=== PATIENT | male | born 1985 | race African-American/Black ===

== ENCOUNTER 2019-10-23 11:26 | Emergency (ER) | payer OTHER ==
[~2019-10-23] VITALS: Ht 188 cm; Wt 117.9 kg
--- NOTE | ~2019-10-23 | EMS ---
[address] [address] EMS Patient Care Report Name: PÉREZ SONI Room #: PRE M.R.#: [id number] Admission: Attend Phys: Discharge: Date of : 83 Report #: [id number] THIS REPORT FOR: //name// Report Transmitted: 10/23/2019 13:16 EMS Care Summary [place], [place]/[facility] Incident [id number] @ 10/23/2019 10:49 Incident Location [address] [place] [address] Patient ADAN KELLEY Female, 89 Years 1928-03-14 Patient Address [address] [place] [address] Patient History Stroke/CVA,Cardiac - Stent,Deep Vein Thrombosis,Mastectomy,Tonsillectomy, Patient Allergies No known allergies, Patient Medications Pantoprazole, Atorvastatin, Gabapentin, Lisinopril, Glimepiride, Duloxetine, Amlodipine, Atenolol, Xarelto, Januvia, Chief Complaint HYPERGLYCEMIA Disposition Transported No Lights/[place] Dispatch Reason Diabetic Problem Transported To [facility] Narrative PT FOUND BEING BROUGHT OUTSIDE BY [facility] P28. PT WEARING SURGICAL MASK. P28 CREW ALL WEARING MASKS. PT STATES THAT HER BLOOD SUGAR IS HIGH TODAY. PT STATES THAT SHE TAKES ALL OF HER MEDICATIONS RX, BUT HAS NOT HAD THEM YET THIS AM. PT [address] [address] EMS Patient Care Report Name: PÉREZ SONI Room #: PRE M.R.#: [id number] Admission: Attend Phys: Discharge: Date of : 83 Report #: [id number] DENIES OTHER COMPLAINTS. TRASNPORTED WITHOUT INCIDENT. Initial Vitals @11:12P: 76,BP: 177/84,SpO2: 99, @11:06P: 90,R: 16,Pain: 0/10,GCS: 15,Glucose: 383, Assessments @11:02MENTAL:No Abnormalities,SKIN:No Abnormalities,HEENT:Head/Face: No Abnormalities,Eyes: No Abnormalities,Neck/Airway: No Abnormalities,LUNG SOUNDS:ABDOMEN:PELVIS//GI:EXTREMITIES:PULSE:NEURO:No Abnormalities, Impression Diabetic Hyperglycemia Procedures @11:02ALS AssessmentResponse: UnchangedSucceeded Timeline 10:46,Call Received 10:46,Dispatch Notified 10:49,Dispatched 10:50,En Route 11:01,On Scene 11:02,At Patient 11:02,ALS Assessment,Response: UnchangedSucceeded, 11:06,BP: / M,PULSE: 90,RR: 16 R,SPO2: Ox,ETCO2: ,B,PAIN: 0,GCS: 15, 11:12,BP: 177/84 M,PULSE: 76,RR: R,SPO2: 99 Ox,ETCO2: ,BG: ,PAIN: ,GCS: , 11:12,Depart Scene 11:21,At Destination 11:40,Call Closed Disclaimer v1.1 Copyright 2020 [employer] This EMS Care Summary contains data elements from the applicable legal record (which may be displayed differently). It is designed to provide pertinent information for the following purposes: continuity of care, clinical quality, and state data reporting. The complete legal record is available to ED staff and administrators of the receiving hospital in [facility]'s Patient Tracker. All data is provided "as is."
[2019-10-23 12:12] LABS: ABSOLUTE NEUTROPHILS 7.2 thou/uL (1.4-8.2); BASOPHILS 1.1 % (0.0-2.0); EOSINOPHILS 0.5 % (0.0-3.0); HEMATOCRIT 48.9 % (42.0-52.0); HEMOGLOBIN 16.6 gm/dL (14.0-18.0); LYMPHOCYTES 19.7 % (24.0-44.0); MCH 28.7 pg (26.0-34.0); MCHC 33.9 g/dL (28.0-37.0); MCV 84.6 fL (80.0-100.0); MONOCYTES 10.4 % (1.0-8.0); POLYS 68.3 % (36.0-66.0); RBC 5.79 mil/uL (4.50-6.00); RDW 13.5 % (10.5-14.5); WBC 10.5 thou/uL (4.0-11.0)
[2019-10-23 13:10] LABS: LARGE PLATELETS OCCASIONAL; PLATELET COUNT 196 thou/uL (150-400)
[2019-10-23 13:34] LABS: ANION GAP 10 mmol/L (7-16); BUN 7 mg/dL (7-18); CALCIUM 7.7 mg/dL (8.5-10.1); CHLORIDE 105 mmol/L (98-107); CO2 26 mmol/L (21-32); CREATININE 1.1 mg/dL (0.7-1.3); GLUCOSE 102 mg/dL (74-106); POTASSIUM 3.4 mmol/L (3.5-5.1); SODIUM 141 mmol/L (136-145)
[2019-10-23 13:37] LABS: AMP/METHAMP Negative (Negative); BARBITURATES Negative (Negative); BENZODIAZEPINES Negative (Negative); COCAINE POSITIVE (Negative); METHADONE Negative (Negative); OPIATES Negative (Negative); PCP Negative (Negative)
[2019-10-23 13:44] LABS: ALBUMIN 3.2 g/dL (3.4-5.0); SGOT 18 U/L (15-37); SGPT 23 U/L (30-65); TOTAL BILIRUBIN 0.4 mg/dL (0.2-1.0); TOTAL PROTEIN 6.4 g/dL (6.4-8.2); TROPONIN-I <0.06 ng/mL (<0.06)
[2019-10-23 17:54] VITALS: BP 116/74
--- NOTE | 2019-10-24 07:48 | EKG ---
[facility] [place] [address] ELECTROCARDIOGRAM REPORT Name: PÉREZ SONI [id number] Admission: 10/23/19 Attend Phys: Discharge: 10/23/19 Date of : 83 Report #: [id number] THIS REPORT FOR: cc: HOMERO Grant family physician/PCP HOMERO - Juanita family physician/PCP Yonis Rice MD 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: [facility] : 1985 Requested By: Tamy Serna Order Number: [id number] MD: Yonis Rice Measurements Intervals [place] Rate: 102 P: 61 AR: 147 QRS: 22 QRSD: 97 T: 3 QT: 338 QTc: 441 Interpretive Statements Sinus tachycardia Otherwise normal tracing Compared to ECG 10/23/2019 11:56:45 T-wave abnormality no longer present Electronically Signed On 10-24-2019 7:48:21 CDT by Yonis Rice [email or web address] <ELECTRONICALLY SIGNED> By: Yonis Rice MD, [facility] 10/24/19 0748 [id number] 1729 Yonis Rice MD, [facility] /EPI
--- NOTE | 2019-10-24 07:53 | EKG ---
[facility] [place] [address] ELECTROCARDIOGRAM REPORT Name: PÉREZ SONI [facility] [id number] Admission: 10/23/19 Attend Phys: Discharge: 10/23/19 Date of : 83 Report #: [id number] THIS REPORT FOR: cc: HOMERO Grant family physician/PCP HOMERO - Juanita family physician/PCP Yonis Rice MD [facility] THIS REPORT FOR: //name// [facility] ED Test Date: 2019-10-23 Test Time: 11:56:45 Pat Name: PÉREZ SONI Department: Room: Gender: Peer Specialist: [facility] : 1985 Requested By: Tamy Serna Order Number: [id number] MD: Yonis Rice Measurements Intervals [place] Rate: 150 P: 50 MS: 109 QRS: 57 QRSD: 97 T: -57 QT: 286 QTc: 452 Interpretive Statements Sinus tachycardia Nonspecific T wave abnormality Prolonged QT interval Compared to ECG 10/23/2019 11:42:35 No significant change was found Electronically Signed On 10-24-2019 7:53:09 CDT by Yonis Rice [email or web address] <ELECTRONICALLY SIGNED> By: Yonis Rice MD, [facility] 10/24/19 0753 1156 1156 Yonis Rice MD, [facility] /EPI
--- NOTE | 2019-10-24 07:53 | EKG ---
[facility] [place] [address] ELECTROCARDIOGRAM REPORT Name: PÉREZ SONI [id number] Admission: 10/23/19 Attend Phys: Discharge: 10/23/19 Date of : 83 Report #: [id number] THIS REPORT FOR: cc: HOMERO Grant family physician/PCP HOMERO - Juanita family physician/PCP Yonis Rice MD [facility] THIS REPORT FOR: //name// [facility] ED Test Date: 2019-10-23 Test Time: 11:42:35 Pat Name: PÉREZ SONI Department: Room: Gender: [employer]: AM : 1985 Requested By: Tamy Serna Order Number: [id number] MD: Yonis Rice Measurements Intervals [place] Rate: 163 P: 14 CA: 79 QRS: 241 QRSD: 102 T: 30 QT: 316 QTc: 521 Interpretive Statements Sinus tachycardia Poor R wave progression Prolonged QT interval Baseline wander in lead(s) V1 No previous ECG available for comparison Electronically Signed On 10-24-2019 7:53:30 CDT by Yonis Rice [email or web address] <ELECTRONICALLY SIGNED> By: Yonis Rice MD, [facility] 10/24/19 0753 1142 1142 Yonis Rice MD, [facility] /EPI
== END 2019-10-23 18:05 | disposition home or self-care (01) ==
LOC: ER 11:26
PROVIDERS: Student in an Organized Health Care Education/Training Program
DX: F14.10 Cocaine abuse, uncomplicated (principal); R07.9 Chest pain, unspecified; R06.02 Shortness of breath; F17.210 Nicotine dependence, cigarettes, uncomplicated